=== PATIENT | female | born 1960 | race Caucasian/White ===

== ENCOUNTER → 2016-11-21 | Outpatient (CLI) | payer BC | LOC: FIMAGING 07:28 | DX: Z12.31 Encounter for screening mammogram for malignant neoplasm of breast (principal) | CPT/HCPCS: G0202 ==

== ENCOUNTER → 2017-02-21 | Outpatient (CLI) | payer BC | LOC: FIMAGING 08:04 | DX: R51 Headache (principal); Z82.49 Family history of ischemic heart disease and other diseases of the circulatory system ==

== ENCOUNTER → 2017-11-28 | Outpatient (CLI) | payer BC | LOC: FIMAGING 08:55 | DX: Z12.31 Encounter for screening mammogram for malignant neoplasm of breast (principal) ==